=== PATIENT | female | born 1980 | race Caucasian/White ===

== ENCOUNTER 2021-03-25 15:42 | Emergency (ER) | payer SELFPAY ==
[~2021-03-25] VITALS: Ht 149.9 cm; Wt 58.1 kg
[2021-03-25 15:48] VITALS: BP 118/69
--- NOTE | 2021-03-25 15:50 | NUR ---
md zafar assessing pt in triage room at this time
--- NOTE | 2021-03-25 15:53 | NUR ---
pt ambulated to bed 05 at this time
[2021-03-25] MEDS ORDERED: KETOROLAC 30 MG/ML VIAL IM ONE (16:05)
[2021-03-25] MEDS ORDERED: NAPR-54 PO (16:24)
--- NOTE | 2021-03-25 16:25 | NUR ---
40 y/o female BIB self for c/o right axillary pain with swelling at site for 1 day. Pt states she got her 3rd shot of her pfizer booster before pain started. Denies N/V/D/CP at this time. Right axillary site is mobile and tender to touch. AOX4, able to make needs known. All other systems WNL Pmhx: Denies Allergies: Denies Med: Denies
--- NOTE | 2021-03-25 16:25 | NUR ---
PT GIVEN URINE SPECIMEN COLLECTION CUP AT THIS TIME
--- NOTE | 2021-03-25 16:40 | NUR ---
Urine collected at this time, test is negative
--- NOTE | 2021-03-25 17:00 | NUR ---
PT TREATED FOR PAIN. PAIN RESOLVED. PT STATES PAIN RATING 0/10. PT DISCHARGED AT 1700. VITAL SIGNS STABLE, STEADY GAIT, NO SIGNS OF DISTRESS. Patient discharged with v/s stable. Written and verbal after care instructions given and explained. Patient alert, oriented and verbalized understanding of instructions. Ambulatory with steady gait. All questions addressed prior to discharge. ID band removed. Patient advised to follow up with PMD. Rx of Naproxen given. Patient educated on indication of medication including possible reaction and side effects. Opportunity to ask questions provided and answered.
== END 2021-03-25 17:04 | disposition home or self-care (01) ==
LOC: MED 15:42
DX: M79.621 Pain in right upper arm (principal); Z79.899 Other long term (current) drug therapy
CPT/HCPCS: 81025; 96372; 99283; J1885